=== PATIENT | male | born 1935 | race Caucasian/White ===

== ENCOUNTER 2019-01-28 07:32 | Observation (INO) | payer OTHER ==
[~2019-01-28] VITALS: Ht 182.9 cm; Wt 89.4 kg
--- NOTE | ~2019-01-28 | H ---
[address] [address] HISTORY AND PHYSICAL Name: NIKKI RENEE Room: [address] Fro[place] Sanchez#: [id number] Admission: 01/28/19 Attend Phys: Al Melchor MD, Discharge: 01/29/19 Date of : 37 Report #: [id number] THIS REPORT FOR: //name// Please refer to the History and Physical performed in the physician's office. By: 0700Medical Records Staff YAIR /SLIME
[2019-01-28 07:51] VITALS: BP 110/71
[2019-01-28 08:08] LABS: HEMATOCRIT 41.8 % (42.0-52.0); HEMOGLOBIN 14.3 gm/dL (14.0-18.0); MCHC 34.3 g/dL (28.0-37.0); MCV 87.3 fL (80.0-100.0); MPV 7.8 fl. (7.2-11.1); RBC 4.78 mil/uL (4.50-6.00); RDW-CV 13.7 % (10.5-14.5); WBC 7.6 thou/uL (4.0-11.0)
[2019-01-28] MEDS ORDERED: NORVASC5 MG PO (08:16)
[2019-01-28] MEDS ORDERED: ASPIR 8181 MG PO (08:17)
[2019-01-28] MEDS ORDERED: ATORVASTATIN CA40 MG PO (08:18)
[2019-01-28] MEDS ORDERED: CELEXA10 MG PO (08:18)
[2019-01-28] MEDS ORDERED: PLAVIX 75 MG TA75 M1 PO (08:18)
[2019-01-28 08:19] LABS: APTT 23.8 Seconds (25.0-31.3); PROTIME 10.6 Seconds (9.20-11.50)
[2019-01-28] MEDS ORDERED: TRAZODONE HCL50 MG PO (08:19)
[2019-01-28] MEDS ORDERED: PRILOSEC 20 MG20 MG PO (08:19)
[2019-01-28] MEDS ORDERED: LOPRESSOR50 PO (08:19)
[2019-01-28 08:46] LABS: ANION GAP 5 mmol/L (7-16); BUN 23 mg/dL (7-18); CHLORIDE 104 mmol/L (98-107); CO2 32 mmol/L (21-32); CREATININE 1.5 mg/dL (0.6-1.3); GLUCOSE 102 mg/dL (70-99); SODIUM 141 mmol/L (136-145)
[2019-01-28 08:51] LABS: CHOLESTEROL 143 mg/dL (<200); HDL CHOLESTEROL 58 mg/dL (>40); LDL CHOLESTEROL 70 mg/dL (<100); TC:HDL 2.5 Ratio (Not establshd); TRIGLYCERIDE 75 mg/dL (<150); VLDL 15 mg/dL (<40)
[2019-01-28 09:01] LABS: SERUM ASSESSMENT Clear
[2019-01-28 10:45] VITALS: BP 170/79
[2019-01-28 11:05] VITALS: BP 170/77
[2019-01-28 11:40] VITALS: BP 168/78
--- NOTE | 2019-01-28 12:48 | EKG ---
[place] [address] ELECTROCARDIOGRAM REPORT Name: NIKKI RENEE Room: [place] [address] ADM IN M.R.#: [id number] Admission: 01/28/19 Attend Phys: Al Melchor MD, Discharge: Date of : 37 Report #: [id number] THIS REPORT FOR: //name// [facility] Test Date: 2019-01-28 Test Time: 07:55:47 Pat Name: NIKKI RENEE Department: Room: [facility] Gender: M Roving Department End Finder: : 1935 Requested By: Al Melchor Order Number: [id number] Robert MD: Al Melchor Measurements Intervals [place] Rate: 59 P: -32 MN: 241 QRS: 9 QRSD: 81 T: 1 QT: 415 QTc: 412 Interpretive Statements Sinus rhythm Prolonged MN interval Borderline T abnormalities, inferior leads Baseline wander in lead(s) V2,V4,V6 No previous ECG available for comparison Electronically Signed On 01-28-2019 12:48:23 CDT by Al Melchor [email or web address] <ELECTRONICALLY SIGNED> By: Al Melchor MD, [facility] 01/28/19 1248 0755 0755 Al Melchor MD, [facility] /EPI
--- NOTE | 2019-01-28 12:51 | EKG ---
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
--- NOTE | 2019-01-28 13:03 | CARD ---
[address] [address] CARDIAC CATH REPORT Name: NIKKI RENEE Samina Room: [address] IN [facility]#: [id number] Admission: 01/28/19 Attend Phys: Al Melchor MD, Discharge: Date of : 37 Report #: [id number] THIS REPORT FOR: //name// APPROVED REPORT Study performed: 01/28/2019 08:45:42 Patient Details Patient Status: Out-Patient Room #: The patient is a 83 year-old male Event Personnel Al Melchor Film Drying Machine Operator, Danita Aguayo RN RN, Dayron Hoover BEEF CATTLE GRAZIER Monitor, Danial Delong Scrub, Al Melchor Marketing Information Analyst Procedures Performed Left heart catheterization left ventriculography selective coronary angiography SAENZ graft study and percutaneous coronary intervention of the proximal LAD extending into the first diagonal Indication Unstable angina Risk Factors Hypercholesterolemia, Hypertension Previous Procedures/Diagnoses Previous CABG Admission/Lab Medications/Medications given during procedure Aspirin, Platelet Aff. Inhib., Angiomax bolus and infusion Procedure Narrative The patient was brought electively to the Cardiac Catheterization Laboratory and was prepped and draped in a sterile manner. The right femoral was infiltrated with 2% Lidocaine subcutaneous anesthesia. A [place] 6 FR sheath was inserted into the . Coronary angiography was performed using coronary diagnostic catheters. The right coronary system was accessed and visualized with a Diagnostic - JR4 catheter. The left coronary system was accessed and visualized with a Diagnostic - JL4 catheter. The left ventricle was accessed and visualized with a Diagnostic - STR PIG catheter. Left ventricular/Aortic Valve gradient assessed [place] [address] CARDIAC CATH REPORT Name: NIKKI RENEE Room: [address]#: [id number] Admission: 01/28/19 Attend Phys: Al Melchor MD, Discharge: Date of : 37 Report #: [id number] Pre-demployment femoral angiogram was performed . Closure device was deployed with a Fr Angioseal STS 6Fr. The patient tolerated the procedure well and there were no complications associated with the procedure. There was no hematoma. Intraoperative Conscious Sedation Sedation start time: 927 Case end Time: 1025 Fentanyl 25 mcg Versed 2 mg Fluoro Time: 15.7 minutes Dose: DAP [id number] cGycm2 1671 mGy Contrast Type and Amount: Visipaque 235 ml Coronary Angiography The patient's coronary anatomy is right dominant. [place] Artery Percent Stenosis Grafts (Complete if Previous CABG=Yes: Percent Stenosis) #1 widely patent SAENZ graft to the distal LAD Diagnostic Cath Left Main 20% mid vessel narrowing LAD 90% proximal LAD stenosis extending into a prominent first diagonal with 100% mid vessel occlusion Circumflex 75% ostial narrowing with 40% narrowing of the proximal portion of the prominent first marginal branch Right Coronary Dominant vessel with 30% mid vessel narrowing Left Ventriculography The left ventricle is normal in size with normal contractility. The left ventricular ejection fraction is estimated to be 65%. Left ventricular wall motion abnormalities are not present. There is no mitral insufficiency. Hemodynamics The aortic pressure is 174/64 mmHg with a mean of 107 mmHg. The left ventricular pressure is 173/1 mmHg with a mean of mmHg. The left ventricular end diastolic pressure is 17 mmHg. There was no gradient across the aortic valve upon pullback. PCI Technique Lesion Anticoagulation was achieved with Angiomax. Patient was preloaded with Angiomax IV 13.5 mg per kg. Percutaneous coronary intervention was performed on the proximal left anterior descending artery segment. The lesion stenosis prior to intervention was 90% [place] [address] CARDIAC CATH REPORT Name: THELMANIKKI Room: [address]#: [id number] Admission: 01/28/19 Attend Phys: Al Melchor MD, Discharge: Date of : 36 Report #: [id number] 3 flow. A 6FR LAUNCHER JL4.0 Guide Catheter was used to engage the ostium. A IG: ProwaterFlex 180CM Interventional Guidewire was used to cross the lesion. BALLOON DILATION A Balloon catheter Mini Trek RX 2.0 X 12, 2.20r31pv trek was inserted and inflated up to 14.00, 20atm for 17seconds. Additional Inflation: 14.00atm for 13seconds. STENT DEPLOYMENT A drug-eluting stent Mehdi RX Stent 2.0X8mm was inserted and inflated up to 17atm for 15seconds. Final angiography reveals 10 % stenosis with VLADIMIR 3 flow. BALLOON DILATION A Balloon catheter was inserted and inflated up to 18.00atm for 21seconds. Additional Inflation: 22.00atm for 18seconds. Additional Inflation: 22.00atm for 18seconds. STENT DEPLOYMENT A stent Mehdi RX Stent 2.0X8mm was inserted and inflated up to 14.00atm for 15seconds. Additional Inflation: 16.00atm for 5seconds. Additional Inflation: 17.00atm for 10seconds. Conclusion #1 significant coronary artery disease characterized by the following: A 20% mid left main coronary artery narrowing B 90% proximal LAD stenosis extending into a prominent first diagonal with 100% mid LAD occlusion C 75% ostial proximal circumflex narrowing, this being a nondominant vessel with 40 percent proximal first marginal narrowing B 30% narrowing of the midportion of the dominant right coronary artery #2 moderate systemic systolic hypertension with mild elevation of left ventricular end-diastolic pressure at rest #3 normal left ventricular systolic function, estimate ejection fraction 65% [place] [address] CARDIAC CATH REPORT Name: NIKKI RENEE Room: [address] IN [facility]#: [id number] Admission: 01/28/19 Attend Phys: Al Melchor MD, Discharge: Date of : 37 Report #: [id number] #4 graft study characterized by a single patent SAENZ graft to the LAD 5 successful percutaneous coronary intervention with deployment of drug-eluting stent at site of 90% proximal LAD stenosis extending into the first diagonal with 10% residual narrowing and VLADIMIR-3 flow the distal vessel Recommendations Cardiac Risk Reduction Program Aggressive Medical Therapy Medications Administered Aspirin (any) Ticagrelor Diagnostic Cath Approved by: Al Melchor MD Date/Time: 01/28/2019 13:00:11 <ELECTRONICALLY SIGNED> By: Al Melchor MD, [facility] 01/28/19 1303 1303 1303Al Melchor MD, FACC /INF
[2019-01-28 16:30] VITALS: BP 168/61
--- NOTE | 2019-01-28 16:56 | NUR ---
PT ADMITTED ON TELE FLOOR ACCOMPANIED BY AND CARDIAC CATH NURSE. VS TAKEN SEE CHART. SR ON THE INSTRUCTIONAL ASSISTANT. MEDICATION REECONCILIATION RE VERIFIED WITH PT. 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 PT STABLE , R GROIN SITE IN INTACT. 1 TO 2 CM OF BLEEDING SPOT OF R GROIN DRESSING. WILL CONTINUE TO MONITOR PT
[2019-01-28 19:55] VITALS: BP 137/68
[2019-01-29] VITALS (7 sets, daily range): BP systolic 150–157; BP diastolic 61–75
[2019-01-29 05:42] LABS: HEMATOCRIT 35.9 % (42.0-52.0); HEMOGLOBIN 12.5 gm/dL (14.0-18.0); MCH 30.1 pg (26.0-34.0); MCHC 34.7 g/dL (28.0-37.0); MCV 86.9 fL (80.0-100.0); MPV 7.8 fl. (7.2-11.1); RBC 4.14 mil/uL (4.50-6.00); RDW-CV 13.4 % (10.5-14.5); WBC 7.6 thou/uL (4.0-11.0)
--- NOTE | 2019-01-29 05:45 | NUR ---
PATIENT PROGRESSING TOWARDS GOALS: PATIENT DENIES PAIN AND DISCOMFORT. RIGHT GROIN SITE NON-TENDER WITH NO HEMATOMA. SMALL AMOUNT OF DRIED BLOOD NOTED ON DRESSING. PATIENT UP WITH STANDBY ASSIST. DENIES DIZZINESS. PATIENT ANTICIPATING DISCHARGE HOME TODAY. CALL LIGHT WITHIN REACH
[2019-01-29 06:20] LABS: ALBUMIN 3.2 g/dL (3.4-5.0); ALKALINE PHOSPHATASE 100 U/L (46-116); ANION GAP 8 mmol/L (7-16); BUN 21 mg/dL (7-18); CALCIUM 8.5 mg/dL (8.5-10.1); CHLORIDE 105 mmol/L (98-107); CO2 28 mmol/L (21-32); CREATININE 1.4 mg/dL (0.6-1.3); GLUCOSE 93 mg/dL (70-99); POTASSIUM 4.2 mmol/L (3.5-5.1); SGOT 15 U/L (15-37); SGPT 21 U/L (30-65); SODIUM 141 mmol/L (136-145); TOTAL BILIRUBIN 1.5 mg/dL (<0.1-1.0); TOTAL PROTEIN 6.1 g/dL (6.4-8.2); TROPONIN-I LEVEL <0.06 ng/mL (<0.06)
--- NOTE | 2019-01-29 07:45 | NUR ---
ASSUMED CARE OF PT ASSESSED AND DOCUMENTED. PT IS ON CARDIAC MONITER TRACING SR 1ST DEGREE HR 70. HE IS A&O WITH NO C/O PAIN. VSS WNL. PT IS AFEBRILE. HE IS ON ROOM AIR. BED IS IN LOW POSITION CALL LIGHT IS IN REACH. WM.
--- NOTE | 2019-01-29 12:53 | EKG ---
[place] [address] ELECTROCARDIOGRAM REPORT Name: NIKKI RENEE [address] [id number] Admission: 01/28/19 Attend Phys: Al Melchor MD, Discharge: Date of : 37 Report #: [id number] THIS REPORT FOR: //name// [facility] Test Date: 2019-01-29 Test Time: 04:44:52 Pat Name: NIKKI RENEE Department: Room: [facility] Gender: M Rn Prior Authorization: ABILIO : 1935 Requested By: Al Melchor Order Number: [id number] Reading MD: Lupillo Louis Measurements Intervals [place] Rate: 66 P: -39 CA: 243 QRS: 7 QRSD: 79 T: 5 QT: 418 QTc: 438 Interpretive Statements Sinus rhythm Prolonged [place] interval Nonspecific ST segment depression Compared to ECG 01/28/2019 10:48:30 T-wave abnormality no longer present Electronically Signed On 01-29-2019 12:53:47 CDT by Lupillo Louis [email or web address] <ELECTRONICALLY SIGNED> By: Lupillo Louis MD, [facility]AC 01/29/19 1253 0444 0444 Lupillo Louis MD, [facility] /EPI
[2019-01-29] MEDS ORDERED: BRILINTA90 MG PO (13:50)
[2019-01-29] MEDS ORDERED: NITROGLYCERIN0.4 MG SUBLING (13:52)
--- NOTE | 2019-01-29 14:13 | NUR ---
CM completed assessment to discuss d/c planning needs. pt a&ox4. pt , Diana, present. pt independent and active. has family support.lives w/spouse pt was dressed and ready to d/c to home. denied any needs for HH or SNF. Has 0 DME. cm to remain available to assist as needed.
--- NOTE | 2019-01-29 14:20 | NUR ---
PT D/C'D TO HOME. EDUCATION GIVEN RE FOLLOW-UP, MEDICATIONS, AND DR'S ORDERS. SCRIPTS GIVEN. IV AND CARDIAC MONITER D/C'D. ALL BELONGINGS PACKED UP AND LEFT WITH PT ACCOMPANIED BY STAFF AND .
--- NOTE | 2019-01-30 10:15 | D ---
[address] [address] DISCHARGE SUMMARY Name: THELMANIKKI Room: [address] Froylan Sanchez#: [id number] Admission: 01/28/19 Attend Phys: Al Meclhor MD, Discharge: 01/29/19 Date of : 37 Report #: [id number] THIS REPORT FOR: //name// CC: DARIEN Melchor Physician staff DATE OF SERVICE: 01/29/2019 FINAL DISCHARGE DIAGNOSES: 1. Unstable angina. 2. Coronary artery disease. 3. Status post coronary artery bypass grafting. 4. Status post percutaneous coronary intervention to the left anterior descending. 5. Hypertension. 6. Hyperlipidemia. PROCEDURES: 01/28/2019 -- left heart catheterization, left ventriculography, selective coronary arteriography, graft study, and percutaneous coronary intervention of the LAD extending into the first diagonal. HOSPITAL COURSE: The patient is a very pleasant 83-year-old male who was recently noted nocturnal diaphoresis with some accompanying shortness of breath. This was reminiscent of prior ischemic syndrome. He has known coronary artery disease status post coronary artery bypass grafting with underlying hypertension and hyperlipidemia. In that context, I performed cardiac catheterization on 01/29/2019 that revealed a widely patent SAENZ graft to the LAD. There was severe compromise of the prominent first diagonal. There was 90% proximal LAD stenosis extending into the large first diagonal. I performed percutaneous coronary intervention, deploying one drug-eluting stent from the proximal left anterior descending into the first diagonal with 10% residual narrowing and VLADIMIR 3 flow of the distal vessel. Troponin did not rise and was less than 0.06. Additional lab revealed sodium of 141, potassium 4.2, BUN 21, creatinine 1.4, glucose 93, hemoglobin 12.5, white blood cell count 7600 with 160,000 platelets. The patient ambulated without difficulties and there was good hemostasis at the right femoral site of catheterization. He was discharged to home on the following medications: Amlodipine 5 mg daily, aspirin 81 mg daily, atorvastatin 40 mg daily, Celexa 10 mg b.i.d., metoprolol 50 mg b.i.d., omeprazole 20 mg daily, ticagrelor 90 mg b.i.d., trazodone or Desyrel 50 mg at bedtime. He is discharged to home in stable condition with followup in our office in 4-6 weeks with me. Modification in therapy [place] [address] DISCHARGE SUMMARY Name: NIKKI RENEE Room: [address]#: [id number] Admission: 01/28/19 Attend Phys: Al Melchor MD, Discharge: 01/29/19 Date of : 37 Report #: [id number] and dose schedule at 90 mg b.i.d. with continued aspirin 81 mg daily. Thus, the patient is discharged to home in stable condition with followup as iterated above. <ELECTRONICALLY SIGNED> By: Al Melchor MD, FACC 01/30/19 1015 1214 1233Jojin Melchor MD, FACC /nt
== END 2019-01-29 14:22 | disposition home or self-care (01) ==
LOC: M.CL 07:32 → M.TBA-CV 10:37 → M.2W 10:37
PROVIDERS: ADMIT Internal Medicine
DX: I25.110 Atherosclerotic heart disease of native coronary artery with unstable angina pectoris (principal); I10 Essential (primary) hypertension; E78.5 Hyperlipidemia, unspecified; E78.00 Pure hypercholesterolemia, unspecified; Z95.1 Presence of aortocoronary bypass graft

== ENCOUNTER 2019-12-23 10:17 | Inpatient (IN) | payer OTHER ==
[~2019-12-23] VITALS: Ht 182.9 cm; Wt 92.1 kg
[~2019-12-23 10:17] MED LIST: ASPIR 8181 MG PO; BRILINTA90 MG PO; CELEXA10 MG PO; LIPITOR40 MG PO; LOPRESSOR50 PO; NITROGLYCERIN0.4 MG SUBLING; NORVASC5 MG PO; PLAVIX 75 MG TA75 M1 PO; PRILOSEC 20 MG20 MG PO; TRAZODONE HCL50 MG PO
[2019-12-23 10:24] VITALS: BP 142/56
[2019-12-23] MEDS ORDERED: CHLORTHALIDONE25 MG PO (10:30)
[2019-12-23] MEDS ORDERED: ELIQUIS5 MG PO (10:30)
[2019-12-23] MEDS ORDERED: COZAAR 25 MG TA25 M1 PO (10:31)
[2019-12-23] MEDS ORDERED: LASIX 40 MG TAB40 MG PO (10:31)
[2019-12-23] MEDS ORDERED: FLOMAX0.4 MG PO (10:32)
[2019-12-23 10:48] LABS: ABSOLUTE EOSINOPHILS 0.3 thou/uL (0.0-0.7); ABSOLUTE LYMPHOCYTES 1.1 thou/uL (0.8-5.3); ABSOLUTE MONOCYTES 0.6 thou/uL (0.0-1.2); BASOPHILS 0.4 %; EOSINOPHILS 3.6 %; HEMATOCRIT 39.4 % (42.0-52.0); HEMOGLOBIN 13.6 gm/dL (14.0-18.0); LYMPHOCYTES 11.8 %; MCH 29.9 pg (26.0-34.0); MCHC 34.6 g/dL (28.0-37.0); MCV 86.2 fL (80.0-100.0); MONOCYTES 7.1 %; MPV 8.4 fl. (7.2-11.1); NUCLEATED RBCS 0 /100WBC; PLATELET COUNT* 246 thou/uL (150-400); POLYS 77.1 %; RBC 4.57 mil/uL (4.50-6.00); RDW-CV 13.6 % (10.5-14.5); WBC 9.1 thou/uL (4.0-11.0)
[2019-12-23 10:54] VITALS: BP 140/60
[2019-12-23 10:55] LABS: APTT 28.7 Seconds (25.0-31.3); CALCIUM 9.1 mg/dL (8.5-10.1); CREATININE 2.4 mg/dL (0.6-1.3); INR 1.1; POTASSIUM 3.3 mmol/L (3.5-5.1); PROTIME 11.4 Seconds (9.20-11.50)
[2019-12-23 10:59] LABS: TOTAL BILIRUBIN 1.2 mg/dL (<0.1-1.0); TOTAL PROTEIN 7.6 g/dL (6.4-8.2)
[2019-12-23 11:30] VITALS: BP 133/59
--- NOTE | 2019-12-23 16:32 | EKG ---
[place] [address] ELECTROCARDIOGRAM REPORT Name: MADELAINEINKKI LOYOLA Room: [address] ADM IN M.R.#: [id number] Admission: 12/23/19 Attend Phys: Torrey Montes Discharge: Date of : 37 Date of Service: 12/23/19 1039 Report #: [id number] THIS REPORT FOR: //name// [facility] ED Test Date: 2019-12-23 Test Time: 10:39:21 Pat Name: NIKKI RENEE Department: Room: [facility] Gender: M Manager Rental: [facility] : 1935 Requested By: Neeta Valdivia Order Number: [id number] MD: Al Melchor Measurements Intervals [place] Rate: 71 P: AR: QRS: 11 QRSD: 91 T: 43 QT: 494 QTc: 537 Interpretive Statements Atrial fibrillation Borderline ST depression, lateral leads Prolonged QT interval Baseline wander in lead(s) V1,V3,V4 Compared to ECG 01/29/2019 04:44:52 ST (T wave) deviation now present Prolonged QT interval now present Sinus rhythm no longer present First degree AV block no longer present Electronically Signed On 12-23-2019 16:30:50 CDT by Al Melchor [email or web address] <ELECTRONICALLY SIGNED> By: Al Melchor MD, [facility] 12/23/19 1630 1039 1039 Al Melchor MD, [facility] /EPI
[2019-12-23 16:33] VITALS: BP 105/51
[2019-12-23 20:00] VITALS: BP 126/43
[2019-12-24] VITALS: BP 112/41
[2019-12-24 04:00] VITALS: BP 127/61; BP 161/95
[2019-12-24 09:00] VITALS: BP 151/76
--- NOTE | 2019-12-24 11:23 | CARDNUC ---
[place] [address] CARDIAC NUCLEAR IMAGING REPORT Name: THELMANIKKI Haas Room: [address] IN [facility]#: [id number] Admission: 12/23/19 Attend Phys: Torrey Montes Discharge: Date of : 37 Date of Service: 12/24/19 1121 Report #: [id number] THIS REPORT FOR: cc: ERVIN CULVER MD, JESSE MD Liston, Michael J. MD [facility] ~ APPROVED REPORT Imaging Protocol: Rest Tc-99m/Stress Tc-99m 2 days Study performed: 12/23/2019 11:19:00 Indication: Dyspnea, Irregular heartbeat, elevated troponin. Patient Location: In-Patient Room #: 222 Stress Tech: Lyndsay Mayen Stress Nurse: LIYAH Estrada Tech:LUCRECIA Linton Ht: 6 ft 0 in Wt: 194 lbs BSA: 2.10 m2 BMI: 26.30 Medical History Medical History: Angina, Arrhythmia, CAD s/p CABG, CAD s/p VA, Former Smoker, HTN, Hyperlipidemia, SOB, elevated t roponin, sleep apnea, TKR. Medications: ELIQUIS, FLECAINIDE, AMLODIPINE, ATORVASTATIN, CHLORTHALIDONE, LASIX, COZAAR, NTG. Allergies: ANTIHISTAMINES-ALKYLAMINE, LISINOPRIL, CHLORPHENIRAMINE. Cardiac Risk Factors: Age, HTN, Hyperlipidemia, SOB, Past Smoker, IRREGULAR HR, ELEVATED TROPONIN. Previous Cardiac Procedures: Myocardial infarction, CABG. Pretest Chest Pain Characteristics: No chest pain. Exercise History: Indeterminate Physical Disabilities: TKR. Meds Held (24 hrs): NTG. Resting Data Rest SPECT myocardial perfusion imaging was performed in supine position 30 minutes following the intravenous injection of 10.7 mCi of Tc-99m Sestamibi. Time of rest injection: 1254 Date: 12/23/2019 The images were gated to evaluate regional wall motion and calculate left [place] [address] CARDIAC NUCLEAR IMAGING REPORT Name: NIKKI RENEE Room: [address]#: [id number] Admission: 12/23/19 Attend Phys: Torrey Montes Discharge: Date of : 37 Date of Service: 12/24/19 1121 Report #: [id number] Administration Route: IV Administration Site: Right Hand Pharmacologic Stress Pharmacologic stress test was performed by injecting Regadenoson 0.4 mg IV push over 10-15 seconds immediately followed by the intravenous injection of 31.0 mCi of Tc-99m Sestamibi. Time of stress injection: 744 Date: 12/24/2019 Administration Route: IV Administration Site: Right Hand Gated Stress SPECT was performed 40 minutes after stress injection. The images were gated to evaluate regional wall motion and calculate left ventricular ejection fraction. Prone imaging was performed. Stress Test Details Stress Test: Pharmacologic stress testing performed using 0.4 mg of regadenoson per 5 mL given IV over 10 seconds. Reason for pharmacologic stress test: TKR, IRREGULAR HR.. HR Max Heart Rate (APMHR): 137 bpm Resting HR: 72 bpm Target HR (85% APMHR): 116 bpm Max HR Achieved: 133 bpm % of APMHR: 97 Recovery HR: 81 bpm BP Resting BP: 151/56 mmHg Max BP: 196/72 mmHg Recovery BP: 167/68 mmHg ECG Resting ECG: Atrial Fibrillation with nonspecific ST segment depression Stress ECG: Atrial Fibrillation with nonspecific ST segment depression ST Change: Horizontal ST depression Maximum ST Deviation: 1.5 mm Arrhythmia: None Recovery ECG: Atrial Fibrillation with nonspecific ST segment depression Recovery ST Change: Horizontal ST depression Recovery ST Deviation: 1.5 mm Recovery Arrhythmia: [place] [address] CARDIAC NUCLEAR IMAGING REPORT Name: NIKKI RENEE Room: [address] IN M..#: [id number] Admission: 12/23/19 Attend Phys: Torrey Montes Discharge: Date of : 37 Date of Service: 12/24/19 1121 Report #: [id number] Reason for Termination: Completed protocol Stress Symptoms: Dyspnea, Lightheaded, CENTER CHEST TIGHTNESS. Exercise duration: 00 min 00 sec Exercise capacity: 1.00 METs The patient tolerated Lexiscan infusion without significant cardiac symptoms. Nurse Comments AN 84 YEAR OLD MALE INPATIENT PRESENTED FOR A SITTING LEXISCAN R/T DYSPNEA, IRREGULAR HR WITH ELEVATED TROPONIN. TEST WELL TOLERATED. RECOVERY UNREMARKABLE WITH PO CAFFEINE, EFFECTIVE. PATIENT WAS ESCORTED TO NUCLEAR MEDICINE FOR IMAGING. PATIENT WAS STABLE AND STATED HE FELT GOOD AT THAT TIME. Stress ECG Conclusion The baseline 12-lead EKG shows atrial fibrillation with nonspecific ST segment depression. EKGs obtained during and post Lexiscan infusion show atrial fibrillation with persistent and more pronounced ST segment depression diffusely. There were no stress-induced arrhythmias. Study Quality Study: Good Artifact: Mild Diaphragmatic artifact Study Data At rest, the left ventricular ejection fraction was 77%.. Post stress, the left ventricular ejection was 74%.. TID = 0.98. Perfusion Perfusion images obtained at rest and post Lexiscan stress show mild photopenia in the inferior wall. Review of the raw data shows evidence of mild diaphragmatic attenuation. No other significant fixed or reversible defects were identified. Wall Motion Normal left ventricular wall motion. Nuclear Conclusion ECG Findings: non-diagnostic Clinical Findings: negative for ischemia Nuclear Findings: negative for ischemia Exercise Capacity: not assessed Left Ventricular Function: [place] [address] CARDIAC NUCLEAR IMAGING REPORT Name: NIKKI RENEE Room: [address] IN [facility].#: [id number] Admission: 12/23/19 Attend Phys: Torrey Montes Discharge: Date of : 37 Date of Service: 12/24/19 1121 Report #: [id number] Risk Study: low Perfusion images show no evidence of anemia. Left ventricular systolic function appears normal on gated studies. This is a low risk study. <Conclusion> The baseline 12-lead EKG shows atrial fibrillation with nonspecific ST segment depression. EKGs obtained during and post Lexiscan infusion show atrial fibrillation with persistent and more pronounced ST segment depression diffusely. There were no stress-induced arrhythmias. <ELECTRONICALLY SIGNED> By: Lupillo Louis MD, FACC 12/24/191120 20 20 Lupillo Louis MD, FACC /INF
[2019-12-24 12:11] VITALS: BP 107/34
[2019-12-24 16:00] VITALS: BP 117/42
[2019-12-24 20:00] VITALS: BP 109/42
[2019-12-25] VITALS (20 sets, daily range): BP systolic 102–150; BP diastolic 46–62
--- NOTE | 2019-12-25 15:44 | EKG ---
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
--- NOTE | 2019-12-25 15:47 | EKG ---
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 : 1935 Requested By: Al Melchor Order Number: [id number] Reading MD: Al Melchor Measurements Intervals [place] Rate: 80 P: 190 [place]: 52 QRS: 4 QRSD: 90 T: 199 QT: 388 QTc: 448 Interpretive Statements Sinus or ectopic atrial rhythm long pr interval Low voltage, extremity leads Abnormal T, consider ischemia, diffuse leads Borderline ST elevation, anterior leads Artifact in lead(s) II,III,aVR,aVF,V1,V2,V3,V4,V6 Compared to ECG 12/23/2019 10:39:21 Ectopic atrial rhythm now present Low QRS voltage now present T-wave abnormality now present Possible ischemia now present Atrial fibrillation no longer present Prolonged QT interval no longer present Electronically Signed On 12-25-2019 15:45:47 CDT by Al Melchor [email or web address] <ELECTRONICALLY SIGNED> By: Al Melchor MD, [facility] 12/25/19 1545 1214 1214 Al Melchor MD, [facility] /EPI
--- NOTE | 2019-12-25 16:56 | CARD ---
[address] [address] CARDIAC CATH REPORT Name: THELMANIKKI Room: [address] IN .#: [id number] Admission: 12/23/19 Attend Phys: Al Melchor MD, Discharge: Date of : 37 Report #: [id number] THIS REPORT FOR: //name// cc: ERVIN CULVER MD, JESSE MD ~ CC: ERVIN Melchor DATE OF SERVICE: 12/25/2019 PROCEDURE: DC cardioversion. TECHNIQUE: The patient was brought to the catheterization suite and was observed to be in atrial fibrillation with a moderate response. He received 3 mg of Versed and 50 mcg of Fentanyl intravenously achieving an adequate level of sedation. With the patches placed in the AP location and synchronization on, patient was cardioverted utilizing a 300 watt seconds x 1 with rhythm reverting from atrial fibrillation with a moderate response to sinus rhythm at a normal rate with first degree AV block. This persisted. The patient had received flecainide and Eliquis doses in the a.m. prior to coming to the lab manager. He was observed until he achieved a normal level of consciousness and remained in sinus rhythm with first-degree AV block. He was returned to his room in stable condition. IMPRESSION: Successful DC cardioversion with rhythm reverting from atrial fibrillation to sinus with first-degree AV block. <ELECTRONICALLY SIGNED> By: Al Melchor MD, FACC 12/25/19 1656 1302 1311Al Melchor MD, [facility] /nt
[2019-12-26 00:13] VITALS: BP 115/56
[2019-12-26 04:00] VITALS: BP 119/56
[2019-12-26] MEDS ORDERED: FLECAINIDE ACET50 M1 PO (04:37)
[2019-12-26 07:35] VITALS: BP 139/62
[2019-12-26 08:48] VITALS: BP 139/62
[2019-12-26 09:24] VITALS: BP 139/62
--- NOTE | 2019-12-26 14:34 | D ---
[address] [address] DISCHARGE SUMMARY Name: NIKKI RENEE Room: [address] IN .R.#: [id number] Admission: 12/23/19 Attend Phys: Al Melchor MD, Discharge: 12/26/19 Date of : 37 Report #: [id number] THIS REPORT FOR: //name// cc: ERVIN CULVER MD, JESSE MD ~ THIS REPORT FOR: //name// CC: ERVIN Melchor DATE OF SERVICE: 12/26/2019 FINAL DISCHARGE DIAGNOSES: 1. Persistent atrial fibrillation. 2. Coronary artery disease. 3. Status post coronary artery bypass grafting remotely. 4. Status post prior percutaneous coronary intervention. 5. Renal insufficiency. 6. Hypertension. 7. Hyperlipoproteinemia. PROCEDURES: 12/25/2019 - DC cardioversion with the rhythm reverting from atrial fibrillation to sinus mechanism. HOSPITAL COURSE: The patient is a very pleasant 84-year-old male with a history of coronary artery disease, status post remote coronary artery bypass grafting and more recent percutaneous coronary intervention of the LAD feeding a prominent diagonal and ungrafted branch. Recently, he demonstrated development of atrial fibrillation with rapid response. In that setting, he noted dyspnea with moderate activity. This persisted despite rate control and he was anticoagulated with Eliquis. The patient was hospitalized for attempt at final cardioversion and DC cardioversion if the former proved unsuccessful. He was loaded with flecainide 50 mg b.i.d., and on day 3 underwent DC cardioversion with 300 watt seconds administered x 1 with the rhythm reverting from atrial fibrillation to sinus at a normal rate. He continued to demonstrate sinus rhythm with first degree AV block on the date of discharge, 12/26/2019. During the hospitalization, he underwent Lexiscan Cardiolite testing, which revealed no inducible ischemia and preserved systolic function. DISCHARGE MEDICATIONS: The patient was discharged to home on the following medications: Amlodipine 5 mg daily, Eliquis 5 mg b.i.d., atorvastatin 40 mg daily, chlorthalidone 25 mg b.i.d., citalopram or Celexa 20 mg b.i.d., flecainide 50 mg b.i.d., furosemide 20 mg daily, losartan 25 mg daily, [place] [address] DISCHARGE SUMMARY Name: NIKKI RENEE Room: [address]#: [id number] Admission: 12/23/19 Attend Phys: Al Melchor MD, Discharge: 12/26/19 Date of : 37 Report #: [id number] omeprazole 20 mg daily, tamsulosin 0.4 mg daily and trazodone 25 mg at bedtime as needed. The patient is scheduled to return to see me in 2-3 weeks in followup. Therefore, he is discharged to home in stable condition on the aforementioned medications with followup as iterated above. Thirty-five minutes for the discharge time from 0830 to 0905 on 12/26/2019. <ELECTRONICALLY SIGNED> By: Al Melchor MD, [facility] 12/26/19 1434 0906 0931Al Melchor MD, FAC /nt
== END 2019-12-26 09:42 | disposition home or self-care (01) | DRG 309 ==
LOC: M.ERS 10:17 → M.2W 10:48 → M.TBA-ER 10:48 → M.2W 11:03
PROVIDERS: Personal Emergency Response Attendant; ADMIT Internal Medicine
PROC: 5A2204Z Restoration of Cardiac Rhythm, Single (ICD-10-PCS; principal; 2019-12-25)
DX: I48.19 Other persistent atrial fibrillation (principal); N17.9 Acute kidney failure, unspecified; G47.30 Sleep apnea, unspecified; K21.9 Gastro-esophageal reflux disease without esophagitis; Z96.652 Presence of left artificial knee joint; I25.10 Atherosclerotic heart disease of native coronary artery without angina pectoris; N18.3 Chronic kidney disease, stage 3 (moderate); I12.9 Hypertensive chronic kidney disease with stage 1 through stage 4 chronic kidney disease, or unspecified chronic kidney disease; N28.9 Disorder of kidney and ureter, unspecified; E78.5 Hyperlipidemia, unspecified; Z88.8 Allergy status to other drugs, medicaments and biological substances; Z79.899 Other long term (current) drug therapy; Z95.1 Presence of aortocoronary bypass graft

== ENCOUNTER 2020-07-21 09:11 | Inpatient (IN) | payer OTHER ==
[~2020-07-21] VITALS: Ht 182.9 cm; Wt 87.1 kg
--- NOTE | ~2020-07-21 | H ---
[address] [address] HISTORY AND PHYSICAL Name: NIKKI RENEE Room: [address]#: [id number] Admission: 07/21/20 Attend Phys: Al Melchor MD, Discharge: 07/23/20 Date of : 37 Report #: [id number] THIS REPORT FOR: //name// cc: ERVIN CULVER MD, JESSE MD ~ Please refer to the History and Physical performed in the physician's office. By: [id number] Records Staff [facility] /SLIME
[~2020-07-21 09:11] MED LIST changes: +CHLORTHALIDONE25 MG PO; +COZAAR 25 MG TA25 M1 PO; +ELIQUIS5 MG PO; +FLECAINIDE ACET50 M1 PO; +FLOMAX0.4 MG PO; +LASIX 40 MG TAB40 MG PO
[2020-07-21 10:00] VITALS: BP 111/49
[2020-07-21 10:09] LABS: HEMATOCRIT 34.7 % (42.0-52.0); HEMOGLOBIN 11.6 gm/dL (14.0-18.0); MCHC 33.5 g/dL (28.0-37.0); MCV 86.8 fL (80.0-100.0); MPV 7.2 fl. (7.2-11.1); RDW-CV 13.7 % (10.5-14.5); WBC 6.9 thou/uL (4.0-11.0)
[2020-07-21 10:14] LABS: CALCIUM 9.2 mg/dL (8.5-10.1); CREATININE 2.1 mg/dL (0.6-1.3); POTASSIUM 3.4 mmol/L (3.5-5.1)
[2020-07-21 10:19] LABS: ALBUMIN 3.5 g/dL (3.4-5.0); TOTAL PROTEIN 7.6 g/dL (6.4-8.2)
[2020-07-21 10:43] LABS: INR 1.1; PROTIME 11.8 Seconds (9.20-11.50)
[2020-07-21 16:17] VITALS: BP 115/54
[2020-07-21 20:40] VITALS: BP 132/54
[2020-07-21 23:55] VITALS: BP 122/59
[2020-07-22] VITALS (8 sets, daily range): BP systolic 106–135; BP diastolic 45–69
[2020-07-23] VITALS: BP 132/60
[2020-07-23 04:00] VITALS: BP 121/64
[2020-07-23 08:00] VITALS: BP 126/81
[2020-07-23] MEDS ORDERED: FLECAINIDE ACET50 M1 PO (08:25)
[2020-07-23] MEDS ORDERED: POTASSIUM20 PO (08:25)
[2020-07-23 09:47] LABS: CALCIUM 8.7 mg/dL (8.5-10.1); CREATININE 1.9 mg/dL (0.6-1.3); POTASSIUM 3.8 mmol/L (3.5-5.1)
--- NOTE | 2020-07-23 10:46 | CARD ---
[address] [address] CARDIAC CATH REPORT Name: THELMANIKKI Haas Room: [address] IN [facility]#: [id number] Admission: 07/21/20 Attend Phys: Al Melchor MD, Discharge: Date of : 37 Report #: [id number] THIS REPORT FOR: //name// cc: ERVIN CULVER MD, JESSE MD ~ CC: ERVIN Melchor DATE OF SERVICE: 07/22/2020 PROCEDURE: DC cardioversion. TECHNIQUE: The patient was brought to the Cardiology suite and was noted to demonstrate atrial fibrillation with a moderate response. Patches were placed in the AP location and then we achieved sedation with 3 mg of Versed and 75 mcg of Fentanyl. With the patient sedated and the patches applied in AP location, we delivered 300 watt seconds x 1 with rhythm reverting from atrial fibrillation to a sinus mechanism at a moderate rate. We allowed the sedation to gradually wore off. He continued to demonstrate sinus rhythm at a normal rate and was transferred to his room in stable condition. IMPRESSION: Successful DC cardioversion with rhythm reverting from atrial fibrillation to a sinus mechanism at a normal rate. <ELECTRONICALLY SIGNED> By: Al Melchor MD, [facility] 07/23/20 1046 1457 1836John Wilbert Melchor MD, FACC /nt
[2020-07-23 11:51] VITALS: BP 121/54
[2020-07-23 12:41] VITALS: BP 121/54
--- NOTE | 2020-07-23 16:24 | EKG ---
[place] [address] ELECTROCARDIOGRAM REPORT Name: NIKKI RENEE Room: [address] IN M.R.#: [id number] Admission: 07/21/20 Attend Phys: Torrey Montes Discharge: 07/23/20 Date of : 37 Date of Service: 07/22/20 1428 Report #: [id number] THIS REPORT FOR: //name// [facility] Test Date: 2020-07-22 Test Time: 14:28:19 Pat Name: NIKKI RENEE Department: Room: [address] Gender: M Fundraising Consultant: NATALIE : 1935 Requested By: Al Melchor Order Number: [id number] Robert MD: Al Melchor Measurements Intervals [place] Rate: 74 P: -49 UT: 244 QRS: 23 QRSD: 106 T: 145 QT: 429 QTc: 476 Interpretive Statements Sinus or ectopic atrial rhythm Prolonged UT interval Borderline low voltage, extremity leads LVH with secondary repolarization abnormality Borderline prolonged QT interval Baseline wander in lead(s) V6 Compared to ECG 12/25/2019 12:14:35 Left ventricular hypertrophy now present Early repolarization now present T-wave abnormality no longer present Possible ischemia no longer present ST (T wave) deviation no longer present Electronically Signed On 07-23-2020 16:24:44 FUNDRAISING OFFICER by Al Melchor [email or web address] <ELECTRONICALLY SIGNED> By: Al Melchor MD, [facility] 07/23/20 1624 1428 1428 Al Melchor MD, [facility] /EPI
--- NOTE | 2020-07-23 16:28 | EKG ---
[place] [address] ELECTROCARDIOGRAM REPORT Name: NIKKI RENEE Room: [address] IN M.R.#: [id number] Admission: 07/21/20 Attend Phys: Torrey Montes Discharge: 07/23/20 Date of : 37 Date of Service: 07/23/20 0831 Report #: [id number] THIS REPORT FOR: //name// [facility] Test Date: 2020-07-23 Test Time: 08:31:01 Pat Name: NIKKI RENEE Department: Room: [address] Gender: M Web Content Specialist: : 1935 Requested By: Al Melchor Order Number: [id number] Robert MD: Al Melchor Measurements Intervals [place] Rate: 79 P: 188 [place]: 184 QRS: 24 QRSD: 107 T: 261 QT: 384 QTc: 441 Interpretive Statements Sinus or ectopic atrial rhythm Borderline repolarization abnormality Compared to prior EKG First degree AV block persists Left ventricular hypertrophy no longer present Electronically Signed On 07-23-2020 16:28:45 SR. DIRECTOR PRODUCT MANAGEMENT by Al Melchor [email or web address] <ELECTRONICALLY SIGNED> By: Al Melchor MD, [facility] 07/23/20 1628 0 0 Al Melchor MD, [facility] /EPI
--- NOTE | 2020-07-24 09:22 | D ---
[facility] [address] [place] [address] DISCHARGE SUMMARY Name: NIKKI RENEE Room: [address] IN M.R.#: [id number] Admission: 07/21/20 Attend Phys: Al Melchor MD, Discharge: 07/23/20 Date of : 37 Report #: [id number] THIS REPORT FOR: //name// cc: ERVIN CULVER MD, JESSE MD ~ CC: ERVIN Melchor DATE OF SERVICE: 07/23/2020 FINAL DISCHARGE DIAGNOSES: 1. Persistent atrial fibrillation. 2. Hypertension. 3. Hypercholesterolemia. PROCEDURES: 07/22/2020 -- DC cardioversion with rhythm reverting from atrial fibrillation to sinus. The patient is a very pleasant 85-year-old male with a history of paroxysmal atrial fibrillation, hypertension and hypercholesterolemia. Previously, he demonstrated persistent atrial fibrillation, was hospitalized with flecainide loading and DC cardioversion. He had done well for several months, but recently noted palpitations and dyspnea on exertion. EKG revealed recurrent atrial fibrillation with a moderate response. He was rehospitalized on 07/21/2020 and I augmented his flecainide dose to 100 mg b.i.d. After loading with that dosage and continuing Eliquis, which he has been compliant with, I proceeded with DC cardioversion on 07/22/2020 and administrating 300 watt seconds x 1 with patches loaded in the AP location with rhythm reverting from atrial fibrillation to a sinus mechanism with first-degree AV block. This continued throughout the remainder of the hospitalization and ambulated in the hallways without difficulty. DISCHARGE MEDICATIONS: He was discharged to home in stable condition on 07/23/2020 on the following medications: Losartan 25 mg daily, flecainide increased to 100 mg b.i.d., Eliquis 2.5 mg b.i.d., and atorvastatin 40 mg daily. I will plan to see the patient in followup in 7-10 days. He was instructed with respect to medications, activity and followup. He is discharged home in stable condition. It is a 35 minutes from 10:40 to 11:15 on 07/23/2020. <ELECTRONICALLY SIGNED> By: Al Melchor MD, FACC 07/24/20 0922 1114 1152Al Melchor MD, FACC /nt
== END 2020-07-23 13:15 | disposition home or self-care (01) | DRG 309 ==
LOC: M.TBA 09:11 → M.2W 09:11 → M.TBA 13:24 → M.2W 07-23 13:15
PROVIDERS: Registered Nurse; ADMIT Internal Medicine; ATTEND Internal Medicine
PROC: 5A2204Z Restoration of Cardiac Rhythm, Single (ICD-10-PCS; principal; 2020-07-22)
DX: I48.19 Other persistent atrial fibrillation (principal); N17.9 Acute kidney failure, unspecified; Z20.828 Contact with and (suspected) exposure to other viral communicable diseases; I10 Essential (primary) hypertension; E78.00 Pure hypercholesterolemia, unspecified; Z79.899 Other long term (current) drug therapy

== ENCOUNTER 2021-01-12 18:52 | Inpatient (IN) | payer OTHER ==
[~2021-01-12] VITALS: Ht 180.3 cm; Wt 83.0 kg
[~2021-01-12 18:52] MED LIST changes: +POTASSIUM20 PO
[2021-01-12 19:01] VITALS: BP 143/56
[2021-01-12 19:31] LABS: ABSOLUTE EOSINOPHILS 0.3 thou/uL (0.0-0.7); ABSOLUTE LYMPHOCYTES 0.6 thou/uL (0.8-5.3); ABSOLUTE MONOCYTES 0.5 thou/uL (0.0-1.2); ABSOLUTE NEUTROPHILS 3.9 thou/uL (1.6-8.1); BASOPHILS 0.6 %; EOSINOPHILS 5.3 %; HEMATOCRIT 30.4 % (42.0-52.0); HEMOGLOBIN 9.9 gm/dL (14.0-18.0); LYMPHOCYTES 10.5 %; MCH 27.7 pg (26.0-34.0); MCHC 32.6 g/dL (28.0-37.0); MCV 85.2 fL (80.0-100.0); MONOCYTES 10.1 %; MPV 7.9 fl. (7.2-11.1); NUCLEATED RBCS 0 /100WBC; PLATELET COUNT* 203 thou/uL (150-400); POLYS 73.5 %; RBC 3.57 mil/uL (4.50-6.00); RDW-CV 17.5 % (10.5-14.5); WBC 5.3 thou/uL (4.0-11.0)
[2021-01-12 19:40] LABS: CALCIUM 9.2 mg/dL (8.5-10.1); CREATININE 1.5 mg/dL (0.6-1.3); POTASSIUM 3.7 mmol/L (3.5-5.1)
[2021-01-12 19:42] LABS: APTT 26.8 Seconds (25.0-31.3); INR 1.1; PROTIME 11.5 Seconds (9.20-11.50)
[2021-01-12 19:50] LABS: ALBUMIN 3.3 g/dL (3.4-5.0); MAGNESIUM 2.1 mg/dL (1.8-2.4); PHOSPHORUS* 2.9 mg/dL (2.5-4.9); TOTAL BILIRUBIN 0.8 mg/dL (<0.1-1.0); TOTAL PROTEIN 7.7 g/dL (6.4-8.2)
[2021-01-12 19:54] LABS: BE 5.1 mmol/L (-2 to +3); PO2 85.3 mmHg (75.0-100.0); pH 7.486 (7.340-7.450)
[2021-01-12 20:20] LABS: URINE BILIRUBIN NEGATIVE (Negative); URINE BLOOD NEGATIVE (Negative); URINE CLARITY CLEAR; URINE COLOR YELLOW; URINE GLUCOSE-RANDOM NEGATIVE (Negative); URINE KETONES NEGATIVE (Negative); URINE LEUKOCYTES-REFLEX NEGATIVE (Negative); URINE NITRITE-REFLEX NEGATIVE (Negative); URINE PROTEIN TRACE (Negative)
[2021-01-12] MEDS ORDERED: KLOR-CON M2020 MEQ PO (21:17)
[2021-01-12] MEDS ORDERED: FLECAINIDE ACET50 M1 PO (21:17)
[2021-01-12 22:03] VITALS: BP 143/56
[2021-01-12 23:00] VITALS: BP 135/51
[2021-01-13 04:00] VITALS: BP 127/57
[2021-01-13 05:48] LABS: BE 2.1 mmol/L (-2 to +3); PCO2 42.3 mmHg (35.0-45.0); PO2 119.3 mmHg (75.0-100.0); pH 7.419 (7.340-7.450)
[2021-01-13 08:00] VITALS: BP 123/56
--- NOTE | 2021-01-13 11:20 | EKG ---
[place] [address] ELECTROCARDIOGRAM REPORT Name: NIKKI RENEE Room: [address] ADM IN .R.#: [id number] Admission: 01/12/21 Attend Phys: Magali Meraz, Discharge: Date of : 37 Date of Service: 01/12/21 1904 Report #: [id number] THIS REPORT FOR: //name// [facility] ED Test Date: 2021-01-12 Test Time: 19:04:00 Pat Name: NIKKI RENEE Department: Room: [address] Gender: M Day Care Worker: [place] : 1935 Requested By: Neeta Valdivia Order Number: [id number] Reading MD: Fazal Reyna Measurements Intervals [place] Rate: 72 P: 54 [place]: 217 QRS: 14 QRSD: 86 T: -66 QT: 361 QTc: 396 Interpretive Statements atrial fibrillation RSR' in V1 or V2, probably normal variant Nonspecific repol abnormality, diffuse leads Compared to ECG 07/23/2020 08:31:01 RSR' in V1 or V2 now present Ectopic atrial rhythm no longer present Electronically Signed On 01-13-2021 11:20:42 CDT by Fazal Reyna [email or web address] <ELECTRONICALLY SIGNED> By: Fazal Reyna MD, [facility] 01/13/21 1120 1904 190 Fazal Reyna MD, [facility] /EPI
--- NOTE | 2021-01-13 11:23 | EKG ---
[place] [address] ELECTROCARDIOGRAM REPORT Name: NIKKI RENEE Room: [address] ADM IN .R.#: [id number] Admission: 01/12/21 Attend Phys: Magali Meraz, Discharge: Date of : 37 Date of Service: 01/12/212050 Report #: [id number] THIS REPORT FOR: //name// [facility] ED Test Date: 2021-01-12 Test Time: 20:51:17 Pat Name: NIKKI RENEE Department: Room: [address] Gender: M Advance Agent: [place] : 1935 Requested By: Neeta Valdivia Order Number: [id number] Reading MD: Fazal Reyna Measurements Intervals [place] Rate: 69 P: 174 UT: 244 QRS: 16 QRSD: 88 T: 40 QT: 428 QTc: 459 Interpretive Statements atrial tachycardia Borderline ST elevation, anterior leads Baseline wander in lead(s) V2 Compared to ECG 01/12/2021 19:04:00 ST (T wave) deviation still present Electronically Signed On 01-13-2021 11:23:11 CDT by Fazal Reyna [email or web address] <ELECTRONICALLY SIGNED> By: Fazal Reyna MD, [facility] 01/13/21 1123 50 50 Fazal Reyna MD, [facility] /EPI
[2021-01-13 12:00] VITALS: BP 116/58
[2021-01-13 16:00] VITALS: BP 113/48
[2021-01-13 20:00] VITALS: BP 122/52
[2021-01-14] VITALS: BP 127/58
[2021-01-14 04:00] VITALS: BP 115/50
[2021-01-14 04:21] LABS: HEMATOCRIT 23.1 % (42.0-52.0); MCH 27.5 pg (26.0-34.0); MCHC 32.4 g/dL (28.0-37.0); MCV 85.1 fL (80.0-100.0); MPV 7.9 fl. (7.2-11.1); RBC 2.71 mil/uL (4.50-6.00); RDW-CV 16.9 % (10.5-14.5); WBC 4.3 thou/uL (4.0-11.0)
[2021-01-14 04:29] LABS: HEMOGLOBIN 7.5 gm/dL (14.0-18.0)
[2021-01-14 04:35] LABS: ANION GAP 6 mmol/L (7-16); BUN 15 mg/dL (7-18); CALCIUM 8.5 mg/dL (8.5-10.1); CHLORIDE 103 mmol/L (98-107); CHOLESTEROL 107 mg/dL (<200); CO2 33 mmol/L (21-32); CREATININE 1.6 mg/dL (0.6-1.3); GLUCOSE 97 mg/dL (70-99); HDL CHOLESTEROL 53 mg/dL (>40); LDL CHOLESTEROL 48 mg/dL (<100); POTASSIUM 3.6 mmol/L (3.5-5.1); SODIUM 142 mmol/L (136-145); TRIGLYCERIDE 32 mg/dL (<150); VLDL 6 mg/dL (<40)
[2021-01-14 04:48] LABS: SERUM ASSESSMENT CLEAR
[2021-01-14 08:37] VITALS: BP 106/42
--- NOTE | 2021-01-14 10:35 | CON ---
[address] [address] CONSULTATION Name: GASTON RENEECAROL Haas Room: [address] IN ..#: [id number] Admission: 01/12/21 Attend Phys: Magali Meraz MD Discharge: Date of : 37 Report #: [id number] THIS REPORT FOR: cc: DIONICIO FABIAN MD, JESSE MD Blick, David R. MD [facility] ~ DOC #: [id number] cc: MD Fazal Pathak MD [facility] DATE OF CONSULTATION: 01/13/2021 CARDIOLOGY CONSULTATION PRIMARY CARE PHYSICIAN: Dr. Dionicio Fabian, he is in [place], [place]. HISTORY OF PRESENT ILLNESS: The patient is an 85-year-old white male who I was asked to seen in the hospital today because of shortness of breath. The patient has an extensive past medical history. He had 4-vessel bypass surgery at [facility] back in 1998. He has had several stents since that time by Dr. Melchor. Most of his stents were placed at [facility] by Dr. Melchor. His first stent was many years ago. His last stent was about 3 years ago. He is not very active at this time. He does have a history of atrial fibrillation and has been cardioverted at least twice. He has been chronically anticoagulated. He has a history of diastolic heart failure with recurrent pleural effusion. He was actually admitted to [facility] in November and had an indwelling left pleural catheter placed for about 4 weeks. It was subsequently removed. The patient was actually just seen by Dr. Melchor on 12/23. He does have oxygen at home. Recently has had increasing shortness of breath. He denies any fever, cough or peripheral edema. Denies chest pain. He notes occasional irregular heartbeat. When he saw Dr. Melchor few weeks ago, echocardiogram showed ejection fraction of 60%. He was in atrial fibrillation. He was on amiodarone in the past, but he was stop taken because of nausea. Dr. Melchor recommended rate control rather than rhythm control of his atrial fibrillation. The patient denies any recent bleeding. Because of shortness of breath, his brought him to the hospital last night, he was admitted for further evaluation and treatment. PAST MEDICAL HISTORY: Otherwise, he has had bilateral knee replacements and appendectomy. He has a history of hypertension, hyperlipidemia and persistent atrial fibrillation. CURRENT MEDICATIONS: Consist of Eliquis, Lipitor, Celexa, Lasix, losartan and [place] [address] CONSULTATION Name: NIKKI RENEE Room: [address] IN ..#: [id number] Admission: 01/12/21 Attend Phys: Magali Meraz MD Discharge: Date of : 37 Report #: [id number] ALLERGIES: He has a previous intolerance to TORSTEN INHIBITOR, which led to swelling as well as LIPITOR AND LISINOPRIL. FAMILY HISTORY: Negative for heart disease. SOCIAL HISTORY: He is . He and his live in [place], [place]. He is retired from [employer]. Quit smoking years ago. Rarely drinks alcohol. REVIEW OF SYSTEMS: He has had no history of stroke, asthma or liver disease. He has had kidney stone before. History of skin cancer. No psychiatric illness. No chronic skin condition. PHYSICAL EXAMINATION: GENERAL: Revealed an elderly, frail-appearing male lying in bed. He appeared in no acute distress. VITAL SIGNS: Blood pressure 120/60, pulse is 90 and irregular. He was afebrile. HEENT: He was anicteric. Conjunctivae are pink. Mucous membranes moist. NECK: Veins do not appear distended. No carotid bruits. CHEST: Clear to auscultation. CARDIAC: Irregular rhythm. Grade II systolic ejection murmur. ABDOMEN: Soft. EXTREMITIES: No pitting edema. Dorsalis pedis pulse could not be palpated. SKIN: Cool and dry. NEUROLOGIC: Nonfocal. LABORATORY DATA: His ECG on admission last night actually showed an atrial tachycardia with controlled response, nonspecific ST segment changes. His x-rays done last night showed small effusions. He actually had a CT scan of the chest using a PE protocol in the emergency room last night that showed no pulmonary embolus, bilateral effusions, atelectasis. His lab work, sodium 138 and creatinine 1.5, it has been as high as 2.4 year ago. Troponin was 0.07. BNP 4004. White blood cell count 5.3 and hemoglobin 9.9. COVID antigen stat test is negative. Urinalysis was trace protein, negative for leukocytes. IMPRESSION AND RECOMMENDATIONS: 1. Acute on chronic diastolic heart failure. Recommend Lasix. 2. Coronary artery disease. No significant angina. Since the patient is on Eliquis, I would not recommend aspirin. 3. Atrial arrhythmias. Rate controlled despite the fact that the patient is no longer on any AV node blocking agent. Suspect he has sick sinus syndrome. I would continue anticoagulation with Eliquis. 4. Hyperlipidemia. The patient is on a statin drug. 5. Chronic kidney disease. [address] [place] [address] CONSULTATION Name: NIKKI RENEE Room: [address] IN ..#: [id number] Admission: 01/12/21 Attend Phys: Magali Meraz MD Discharge: Date of : 37 Report #: [id number] 6. Anemia. No history of bleeding. Fazal Reyna MD FACC DRB/KAREN <ELECTRONICALLY SIGNED> By: Fazal Reyna MD, [facility] 01/14/21 1035 1411 1927Daev Reyna MD, [facility]ATE /nt
[2021-01-14 12:31] VITALS: BP 95/37
--- NOTE | 2021-01-14 12:50 | EKG ---
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: : 1935 Requested By: Fazal Reyna Order Number: [id number] Robert MD: Fazal Reyna Measurements Intervals [place] Rate: 64 P: [place]: QRS: 31 QRSD: 86 T: 106 QT: 414 QTc: 427 Interpretive Statements Atrial tachycardia Nonspecific T abnormalities, lateral leads Compared to ECG 01/12/2021 20:51:17 no change Electronically Signed On 01-14-2021 12:50:38 CDT by Fazal Reyna [email or web address] <ELECTRONICALLY SIGNED> By: Fazal Reyna MD, [facility] 01/14/21 1250 0757 0757 Fazal Reyna MD, [facility] /EPI
[2021-01-14 17:31] VITALS: BP 104/45
[2021-01-14 20:40] VITALS: BP 123/40
[2021-01-14 22:32] LABS: HEMOGLOBIN 7.9 gm/dL (14.0-18.0)
[2021-01-15] VITALS: BP 113/37
[2021-01-15 00:31] VITALS: BP 112/45; BP 118/44; BP 118/47; BP 120/45
[2021-01-15 05:09] LABS: ABSOLUTE EOSINOPHILS 0.3 thou/uL (0.0-0.7); ABSOLUTE LYMPHOCYTES 0.5 thou/uL (0.8-5.3); ABSOLUTE MONOCYTES 0.5 thou/uL (0.0-1.2); ABSOLUTE NEUTROPHILS 4.1 thou/uL (1.6-8.1); BASOPHILS 0.6 %; EOSINOPHILS 5.5 %; HEMATOCRIT 26.6 % (42.0-52.0); HEMOGLOBIN 8.7 gm/dL (14.0-18.0); LYMPHOCYTES 8.8 %; MCH 27.6 pg (26.0-34.0); MCHC 32.8 g/dL (28.0-37.0); MCV 84.2 fL (80.0-100.0); MONOCYTES 9.6 %; NUCLEATED RBCS 0 /100WBC; PLATELET COUNT* 173 thou/uL (150-400); POLYS 75.5 %; RBC 3.15 mil/uL (4.50-6.00); RDW-CV 16.6 % (10.5-14.5); WBC 5.5 thou/uL (4.0-11.0)
[2021-01-15 05:18] LABS: CALCIUM 8.9 mg/dL (8.5-10.1); CREATININE 1.8 mg/dL (0.6-1.3); POTASSIUM 3.7 mmol/L (3.5-5.1)
[2021-01-15 07:03] LABS: % SATURATION 26 % (20-39); IRON 54 ug/dL (50-175)
[2021-01-15 08:00] VITALS: BP 128/54
[2021-01-15 12:56] VITALS: BP 111/40
[2021-01-15 15:36] VITALS: BP 111/40
[2021-01-15] MEDS ORDERED: AUGMENTIN 875-1 EACH PO (16:57)
[2021-01-15 17:27] VITALS: BP 111/40
== END 2021-01-15 17:50 | disposition home health service (06) | DRG 177 ==
LOC: M.ERS 18:52 → M.TBA-ER 21:07 → M.2W 21:07
PROVIDERS: Internal Medicine; Internal Medicine Cardiovascular Disease; Personal Emergency Response Attendant; ADMIT Internal Medicine; ATTEND Internal Medicine
PROC: 5A0935A Assistance with Respiratory Ventilation, Less than 24 Consecutive Hours, High Flow/Velocity Cannula (ICD-10-PCS; principal; 2021-01-13)
PROC: 5A0935A Assistance with Respiratory Ventilation, Less than 24 Consecutive Hours, High Flow/Velocity Cannula (ICD-10-PCS; 2021-01-14)
PROC: 30233N1 Transfusion of Nonautologous Red Blood Cells into Peripheral Vein, Percutaneous Approach (ICD-10-PCS; 2021-01-15)
DX: J15.6 Pneumonia due to other Gram-negative bacteria (principal); I50.33 Acute on chronic diastolic (congestive) heart failure; I13.0 Hypertensive heart and chronic kidney disease with heart failure and stage 1 through stage 4 chronic kidney disease, or unspecified chronic kidney disease; I47.1 Supraventricular tachycardia; N17.9 Acute kidney failure, unspecified; Z20.822 Contact with and (suspected) exposure to COVID-19; I48.91 Unspecified atrial fibrillation; E78.5 Hyperlipidemia, unspecified; I49.9 Cardiac arrhythmia, unspecified; N18.9 Chronic kidney disease, unspecified; D64.9 Anemia, unspecified; Y95 Nosocomial condition; I25.10 Atherosclerotic heart disease of native coronary artery without angina pectoris; Z96.653 Presence of artificial knee joint, bilateral; K21.9 Gastro-esophageal reflux disease without esophagitis; Z95.1 Presence of aortocoronary bypass graft; Z88.8 Allergy status to other drugs, medicaments and biological substances; Z90.49 Acquired absence of other specified parts of digestive tract